=== PATIENT | male | born 1990 | race Caucasian/White ===

== ENCOUNTER 2018-10-15 04:02 | Emergency (ER) | payer OTHER ==
[2018-10-15 04:08] VITALS: RESP 16; TEMP 98.7
--- NOTE | 2018-10-15 04:32 | ED ---
Psych HPI - General Source: patient, EMS, RN notes reviewed, old records reviewed Mode of arrival: EMS - History of Present Illness MD Complaint: suicidal ideation, feels depressed -: unknown Associated Psychiatric Symptoms: suicidal ideation, homicidal ideation, racing thoughts, auditory hallucinations History of same: Yes Quality: constant Improves With: none Worsens With: none Associated Symptoms: denies other symptoms Treatments Prior to Arrival: placed on mental health hold If Self Harm: admits thoughts of self harm <Randall Osborn - Last Filed: 10/15/18 04:31> <Tavo Mcfadden - Last Filed: 10/15/18 06:56> - General Chief Complaint: Psychiatric Symptoms Stated Complaint: Mental Health Time Seen by Provider: 10/15/18 04:31 - History of Present Illness Initial Comments: This is a 28-year-old male the ER for evaluation. Patient does say for evaluation of psychiatric illness. Per patient is suicidal homicidal seeing things, patient was suicidal to please today. Patient's brought in for psychiatric evaluation and treatment, denies drug or alcohol abuse (Randall Osborn) - Related Data Allergies Allergy/AdvReac Type Severity Reaction Status Date / Time Penicillins Allergy Mild Rash/Hives Verified 10/15/18 04:08 Review of Systems ROS Other: All systems not noted in ROS Statement are negative. <Randall Osborn - Last Filed: 10/15/18 04:31> ROS Other: All systems not noted in ROS Statement are negative. <Tavo Mcfadden - Last Filed: 10/15/18 06:56> ROS Statement: Those systems with pertinent positive or pertinent negative responses have been documented in the HPI. Past Medical History Past Medical History: No Reported History History of Any Multi-Drug Resistant Organisms: None Reported Past Surgical History: Hernia Repair Past Psychological History: Depression Smoking Status: Current every day smoker Past Alcohol Use History: Occasional Past Drug Use History: Marijuana <Randall Osborn - Last Filed: 10/15/18 04:31> General Exam Limitations: no limitations General appearance: alert, in no apparent distress Head exam: Present: atraumatic, normocephalic, normal inspection Eye exam: Present: normal appearance, PERRL, EOMI. Absent: scleral icterus, conjunctival injection, periorbital swelling ENT exam: Present: normal exam, mucous membranes moist Neck exam: Present: normal inspection. Absent: tenderness, meningismus, lymphadenopathy Respiratory exam: Present: normal lung sounds bilaterally. Absent: respiratory distress, wheezes, rales, rhonchi, stridor Cardiovascular Exam: Present: regular rate, normal rhythm, normal heart sounds. Absent: systolic murmur, diastolic murmur, rubs, gallop, clicks GI/Abdominal exam: Present: soft, normal bowel sounds. Absent: distended, tenderness, guarding, rebound, rigid Extremities exam: Present: normal inspection, full ROM, normal capillary refill. Absent: tenderness, pedal edema, joint swelling, calf tenderness Back exam: Present: normal inspection Neurological exam: Present: alert, oriented X3, CN II-XII intact Psychiatric exam: Present: normal affect, normal mood Skin exam: Present: warm, dry, intact, normal color. Absent: rash <Randall Osborn - Last Filed: 10/15/18 04:31> Course <Randall Osborn - Last Filed: 10/15/18 04:31> Vital Signs 10/15/18 04:04 Temperature 98.7 F Pulse Rate 91 Respiratory 16 Rate Blood Pressure 147/84 O2 Sat by Pulse 99 Oximetry - Reevaluation(s) Reevaluation #1: 10/15/18 04:32 Medical record is reviewed and patient's medically clear for psychiatric evaluation (Randall Osborn) Medical Decision Making <Tavo Mcfadden - Last Filed: 10/15/18 06:56> - Medical Decision Making The patient was evaluated by the psychiatric service and found not to be a risk to himself or anyone else. He did admit to drinking today. He did have a verbal altercation with his . He'll be discharged with outpatient referral. (Tavo Mcfadden) Disposition <aRndall Osborn - Last Filed: 10/15/18 04:31> Is patient prescribed a controlled substance at d/c from ED?: No <Tavo Mcfadden - Last Filed: 10/15/18 06:56> Clinical Impression: Adjustment reaction Disposition: HOME SELF-CARE Condition: Good Instructions (If sedation given, give patient instructions): Mood Disorders (ED), Stress (ED) Referrals: None,Stated [Primary Care Provider] - 1-2 days
[2018-10-15 07:17] VITALS: BP 135/92; PULSE 78
== END 2018-10-15 07:17 | disposition home or self-care (01) ==
LOC: EC 04:02
DX: F43.20 Adjustment disorder, unspecified (principal); R45.850 Homicidal ideations; R45.851 Suicidal ideations; R44.0 Auditory hallucinations; F32.9 Major depressive disorder, single episode, unspecified; F17.200 Nicotine dependence, unspecified, uncomplicated; Z88.0 Allergy status to penicillin
CPT/HCPCS: 82075; 99285